=== PATIENT | male | born 1990 ===

== ENCOUNTER 2016-10-23 22:38 | Inpatient (IN) | payer SELFPAY ==
[2016-10-23 22:40] VITALS: BMI 26.9
--- NOTE | 2016-10-23 22:50 | ED PDOC ---
Arrival/HPI - General Chief Complaint: Psychiatric Evaluation Time Seen by Provider: 10/23/16 22:47 Historian: Patient - History of Present Illness Narrative History of Present Illness (Text): 10/23/16 22:50 Damien Parrish is a 25 year old male, whose past medical history includes anxiety and depression, who presents to the Emergency department transferred from [facility] for admission to psychiatric floor for management of depression. Patient was medically cleared at previous institution. Patient denies any fever, chills, chest pain, shortness of breath, nausea, vomiting, diarrhea, urinary symptoms, back pain, neck pain, headache, dizziness, or any other somatic complaints. Symptom Onset: Gradual Symptom Course: Unchanged Activities at Onset: Rest, Light Context: Other (transferred from [facility]) Past Medical History - Provider Review Nursing Documentation Reviewed: Yes - Infectious Disease Hx of Infectious Diseases: None - Psychiatric Hx Substance Use: Yes - Anesthesia Hx Anesthesia: No Family/Social History - Physician Review Nursing Documentation Reviewed: Yes Family/Social History: No Known Family HX Smoking Status: Light Smoker < 10 Cigarettes Daily Hx Alcohol Use: Yes Frequency of alcohol use: Daily Hx Substance Use: Yes Substance used: cocaine Allergies/Home Meds Allergies/Adverse Reactions: Allergies No Known Allergies Allergy (Verified 10/23/16 22:40) Home Medications: Home Meds Medication Instructions Recorded Confirmed No Known Home Med 10/23/16 10/23/16 Review of Systems - Physician Review All systems were reviewed & negative as marked: Yes - Review of Systems Constitutional: Normal. absent: Fevers Eyes: Normal ENT: Normal Respiratory: Normal. absent: SOB, Cough Cardiovascular: Normal. absent: Chest Pain Gastrointestinal: Normal. absent: Abdominal Pain, Diarrhea, Nausea, Vomiting Genitourinary Male: Normal. absent: Dysuria, Frequency, Hematuria, Urinary Output Changes Musculoskeletal: Normal. absent: Back Pain, Neck Pain Skin: Normal. absent: Rash Neurological: Normal. absent: Headache, Dizziness Endocrine: Normal Hemo/Lymphatic: Normal Psychiatric: Normal Physical Exam Vital Signs Reviewed: Yes Vital Signs Temp Pulse Resp BP Pulse Ox 10/23/16 23:03 98.1 F 52 L 16 125/79 93 L Temperature: Afebrile Blood Pressure: Normal Pulse: Regular Respiratory Rate: Normal Appearance: Positive for: Well-Appearing, Non-Toxic, Comfortable Pain Distress: None Mental Status: Positive for: Alert and Oriented X 3 - Systems Exam Head: Present: Atraumatic, Normocephalic Pupils: Present: PERRL Extroacular Muscles: Present: EOMI Conjunctiva: Present: Normal Mouth: Present: Moist Mucous Membranes Neck: Present: Normal Range of Motion Respiratory/Chest: Present: Clear to Auscultation, Good Air Exchange. No: Respiratory Distress, Accessory Muscle Use Cardiovascular: Present: Regular Rate and Rhythm, Normal S1, S2. No: Murmurs Abdomen: Present: Normal Bowel Sounds. No: Tenderness, Distention, Peritoneal Signs Back: Present: Normal Inspection Upper Extremity: Present: Normal Inspection. No: Cyanosis, Edema Lower Extremity: Present: Normal Inspection. No: Edema Neurological: Present: GCS=15, CN II-XII Intact, Speech Normal Skin: Present: Warm, Dry, Normal Color. No: Rashes Psychiatric: Present: Alert, Oriented x 3, Normal Insight, Normal Concentration Medical Decision Making ED Course and Treatment: 10/23/16 22:50 Impression: 25 year old male transferred from [facility] for depression. Differential Diagnosis included but are not limited to: depression Progress Notes: Pt transferred from [facility] for admission to psychiatric floor for management of depression. Patient was medically cleared at previous institution. Pt admitted to [facility] under Dr. Espinosa's service. - Scribe Statement The provider has reviewed the documentation as recorded by the Zechariah Burrell Provider Attestation: All medical record entries made by the Scribe were at my direction and personally dictated by me. I have reviewed the chart and agree that the record accurately reflects my personal performance of the history, physical exam, medical decision making, and the department course for this patient. I have also personally directed, reviewed, and agree with the discharge instructions and disposition. Disposition/Present on Arrival - Present on Arrival Any Indicators Present on Arrival: No History of DVT/PE: No History of Uncontrolled Diabetes: No Urinary Catheter: No History of Decub. Ulcer: No History Surgical Site Infection Following: None - Disposition Have Diagnosis and Disposition been Completed?: Yes Diagnosis: Depression, Suicidal ideation Disposition: HOSPITALIZED Disposition Time: 23:10 Patient Plan: Admission Condition: GOOD
[2016-10-24] MEDS ORDERED: Alum-Mag Hydrox-Simethicone Susp (30 mL) PO PRN (00:25)
[2016-10-24 02:23] VITALS: O2SAT 98
[2016-10-24 07:42] VITALS: RESP 20; TEMP 97.6
[2016-10-24 08:35] LABS: CHOLESTEROL 160 mg/dL (130-200)
[2016-10-24 09:33] LABS: HEMATOCRIT 45.2 % (42.0-52.0); MEAN CELL VOLUME 78.9 fL (80.0-105.0); MEAN CORPUSCULAR HEMOGLOBIN 27.4 pg (25.0-35.0); MEAN CORPUSCULAR HGB CONC 34.7 g/dl (31.0-37.0); MEAN PLATELET VOLUME 10.1 fl (7.0-11.0); RED CELL DISTRIBUTION WIDTH 13.3 % (11.5-14.5); WHITE BLOOD COUNT 5.5 10^3/ul (4.5-11.0)
[2016-10-24 09:41] LABS: ALB/GLOB RATIO 1.2 (1.1-1.8); ALKALINE PHOSPHATASE 72 U/L (38-133); ALT/SGPT 57 U/L (7-56); AST/SGOT 72 U/L (15-59); BLOOD UREA NITROGEN 6 mg/dL (7-21); CALCIUM 9.3 mg/dL (8.4-10.5); CARBON DIOXIDE 27 mmol/L (21-33); CHLORIDE 105 mmol/L (98-107); GFR AFRICAN-AMERICAN > 60; GLUCOSE,RANDOM 90 mg/dL (70-110); MAGNESIUM 1.9 mg/dL (1.7-2.2); PHOSPHOROUS 3.4 mg/dL (2.5-4.5); POTASSIUM 4.5 mmol/L (3.6-5.0); SODIUM 138 mmol/L (132-148); TOTAL PROTEIN 6.8 g/dL (5.8-8.3)
[2016-10-24] MEDS: Multivitamin With Minerals Tab PO SCH (13:07)
--- NOTE | 2016-10-24 13:32 | PCM.PSYCH ---
Initial Psychiatric Evaluation - Initial Psychiatric Evaluation Type of Admission: Voluntary Legal Status: Capacity (pt has capacity to sign consent for tx) Chief Complaint (in patient's own words): "I was not feeling so well, I need to have help" Patient's Reaction to Hospitalization: pt was admitted for evaluation of depressive symptoms. History of Present Illness and Precipitating Events: Shortly pt is a 25 year old homeless male initially presenting to [facility] ED for substance abuse and GI upset, when pt got to know that he is going to be d/c from the hospital pt expressed suicidal ideations. Pt signed consent for tx and was admitted over night. pt was seen at the tx team meeting, presented to be malodorous, poor personal hygiene, fair ADLs. pt is poor and unreliable historian, pt said that last time he was incarcerated was four years ago, but as per PES eval pt was released in June and since that time pt being homeless. pt said that he was feeling depressed, hopeless and helpless, passive wish to be , denied any plan or intent to kill himself. pt denied being anxious, denied BETO, denied PTSD, denied h/o abuse. pt said that he has periods of irritability, mind racing, difficulties to concentrate when he was off drugs, such episodes could last not more than couple of days. pt said that he does not hear voices or seeing things, denied paranoid ideation , but pt was keep looking at the back towards the door, seems to be suspicious. pt reported that he was trying to self medicate with alcohol, cocaine, heroin, pt reported initially came to the hospital for "vomiting and upset stomach". pt has some mild UE tremor, last dose of all drugs was three days ago, pt has h/o rehabs, most recent was two years ago MINI, pt staid sober for two months. no DT 's h/o. pt smokes about 6cigarettes a day, requested to have a nicotine patch. counseling provided. pt was denied h/o agitation/denied h/o aggressions, pt's brother is institutionalized, long h/o mental illness, pt does not know what dx he has. pt has h/o incarceration for burglary [id number], violation of probation as per PES, pt wanted to withhold this info (PES report). pt reported h/o suicidal attempt "four years ago, I wanted to kill myself, I cut my wrist" pt has old superficial scars on the left forearm. as per pt: h/o psych admission in [facility] "two years ago". pt has no support, pt is homeless, substance abuse, no job. goal for tx: "I want to get better, I was keep using drugs because of my depression". meds discussed, risk/benefits and alternatives were explained to the pt. Medical h/o: denied. 10/24/16 09:10 10/24/16 09:10 Lab Results 10/24/16 11:30: TSH 3rd Generation 1.05 10/24/16 09:10: Sodium 138, Potassium 4.5, Chloride 105, Carbon Dioxide 27, Anion Gap 11, BUN 6 L, Creatinine 0.9, Est GFR ( Amer) > 60, Est GFR (Non -Af Amer) > 60, Random Glucose 90, Calcium 9.3, Phosphorus 3.4, Magnesium 1.9, Total Bilirubin 1.0, AST 72 H, ALT 57 H, Alkaline Phosphatase 72, Total Protein 6.8, Albumin 3.7, Globulin 3.1, Albumin/Globulin Ratio 1.2 10/24/16 09:10: WBC 5.5, RBC 5.73, Hgb 15.7, Hct 45.2, MCV 78.9 L, MCH 27.4, MCHC 34.7, RDW 13.3, Plt Count 184, MPV 10.1 10/24/16 08:00: Triglycerides 36, Cholesterol 160, LDL Cholesterol Direct 69, HDL Cholesterol 67 H 10/24/16 08:00: Hemoglobin A1c 5.9 Vital Signs Temp Pulse Resp BP Pulse Ox 10/24/16 07:41 97.6 F 56 L 20 129/68 10/24/16 00:28 17 10/23/16 23:20 98.7 F 58 L 22 117/76 98 10/23/16 23:03 98.1 F 52 L 16 125/79 93 L Current Medications: Active Medications Generic Name Dose Route Start Last Admin Trade Name Freq PRN Reason Stop Dose Admin Acetaminophen 650 mg 10/24/16 00:13 10/24/16 00:32 Tylenol 325mg Tab PO 650 mg Q6 PRN Administration Pain, Mild (1-3) Al Hydrox/Mg Hydrox/Simethicone 30 ml 10/24/16 00:25 10/24/16 00:32 Maalox Plus 30 Ml PO 30 ml DAILY PRN Administration Indigestion / Heartburn Citalopram Hydrobromide 10 mg 10/24/16 08:00 Celexa PO DAILY FILIPE Folic Acid 1 mg 10/24/16 08:00 Folic Acid PO DAILY FILIPE Lorazepam 2 mg 10/24/16 06:00 10/24/16 06:10 Ativan PO 2 mg Q6 FILIPE Administration Thiamine HCl 50 mg 10/24/16 08:00 Vitamin B1 Tab PO DAILY FILIPE Zaleplon 10 mg 10/24/16 00:29 Sonata PO HS PRN Insomnia Past Psychiatric History - Past Psychiatric History Prior Professional Help: see HPI Prior Psychiatric Treatment: see hPi At [facility]: see HPI Duration: see HPI Nature of Treatment: see hPI Explanation of prior treatment: none History of Abuse: see HPI History of ETOH/Drug Use: see HPI History of Family Illness: see HPI Pertinent Medical Hx (Current Medical&Sleep Prob, Allergies): Allergies Allergy/AdvReac Type Severity Reaction Status Date / Time No Known Allergies Allergy Verified 10/24/16 00:11 No Known Home Med 10/23/16 Review of Systems - Review of Systems Systems not reviewed;Unavailable: Acuity of Condition - EENT Eyes: As Per HPI Ears: As Per HPI Nose/Mouth/Throat: As Per HPI - Cardiovascular Cardiovascular: As Per HPI - Respiratory Respiratory: As Per HPI - Gastrointestinal Gastrointestinal: As Per HPI - Genitourinary Genitourinary: As Per HPI - Reproductive: Male Reproductive:Male: As Per HPI - Musculoskeletal Musculoskeletal: As Par HPI - Integumentary Integumentary: As Per HPI - Neurological Neurological: As Per HPI - Psychiatric Psychiatric: As Per HPI - Endocrine Endocrine: As Per HPI - Hematologic/Lymphatic Hematologic: As Per HPI Mental Status Examination - Personal Presentation Personal Presentation: Looks stated age - Affect Affect: Flat - Motor Activity Motor Activity: Psychomotor Retardation - Reliability in Providing Information Reliability in Providing Information: Poor, due to alteration in thoughts, Poor , due to altered mood, Poor, due to cognitve impairment - Speech Speech: Organized, Other (poverty of speech) - Mood Mood: Depressed - Formal Thought Process Formal Thought Process: Other (poverty of thoughts) - Obsessions/Compulsions Obsessions: None Compulsions: None - Cognitive Functions Orientation: Person, Place, Situation Sensorium: Drowsy Attention/Concentration: Easily distracted Abstract Thinking: [place] Estimate of Intelligence: Below average Judgement: Intact, as evidence by: Insight regarding need for hospitalization - Risk Risk: Withdrawal, Self-mutilation, Diminished functioning - Strength & Assets Inventory Strength & Assets Inventory: Cooperative - Limitations Limitations: Other (polysubstance abuse and dependence) DSM 5 DX - DSM 5 DSM 5 Diagnosis: r/o MDD r/o substance induced mood disorder r/o bipolar spectrum d/o r/o antisocial personality d/o polysubsntace abuse and dependence nicotine abuse - Recommended/Plan of Treatment Treatment Recommendations and Plan of Treatment: milieu,structure, supportive therapy multivitamins, thiamine,folic acid Neurontin 100 mg 3 times a day for alcohol cravings Remeron 15 mgat the nighttime for depression and insomnia Risperdal 0.5 mg twice a day for mood stabilization When necessary medication Will consider naltrexone 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 - Smoking Cessation Smoking Cessation Initiated: Yes
[2016-10-25 06:47] VITALS: BP 138/78; PULSE 60
[2016-10-25] MEDS: Multivitamin With Minerals Tab PO SCH (09:16)
[2016-10-25] MEDS ORDERED: guaiFENesin 100 mg/5 ml Syrup UD PO PRN (12:56)
[2016-10-25] MEDS ORDERED: DiphenhydrAMINE 50 mg/ml Inj ONE (14:54)
[2016-10-25] MEDS ORDERED: DiphenhydrAMINE 50 mg/ml Inj IM ONE (14:58)
--- NOTE | 2016-10-25 15:27 | CP.PCM.CON ---
<Mathew Alston - Last Filed: 10/25/16 15:38> History of Present Illness - History of Present Illness History of Present Illness: Medicine Consult Note This is a 25 y/o male presenting from [facility] for inpatient psych admission. Patient presented with reports of depression with suicidal ideation. Patient states this is not the first time he has experienced feelings of depression and suicidal thoughts. He states he did not have a plan to commit suicide. He denies homicidal ideation. Patient also admits to tobacco and daily alcohol use. States he drinks about 6 beers daily. Currently patient is complaining of a nonproductive cough for the past few days. He denies chest pain , shortness of breath, n/v/d, GI complaints, urinary symptoms. On initial w/u at [facility] urine tox noted to be positive for both cannabis and cocaine. PMH: anxiety, depression Surgical HX - patient denies Fhx - none significant Allergies - NKDA Social hx - admits to daily alcohol use. States he drinks 6 beers daily. Admits to smoking 1ppd for about 10 years. Review of Systems - Constitutional Constitutional: absent: Chills, Fever - EENT Eyes: absent: Blurred Vision, Change in Vision, Loss of Vision Nose/Mouth/Throat: Sore Throat. absent: Nasal Congestion, Nasal Discharge - Cardiovascular Cardiovascular: absent: Chest Pain, Dyspnea, Syncope - Respiratory Respiratory: Cough. absent: Dyspnea, Hemoptysis, Dyspnea on Exertion - Gastrointestinal Gastrointestinal: absent: Abdominal Pain, Diarrhea, Nausea, Vomiting - Genitourinary Genitourinary: absent: Dysuria, Hematuria - Musculoskeletal Musculoskeletal: absent: Back Pain, Neck Pain - Integumentary Integumentary: absent: Pruritus, Rash - Neurological Neurological: absent: Dizziness, Focal Weakness, Headaches, Syncope - Psychiatric Psychiatric: Anxiety, Depression, Suicidal Ideation. absent: Hallucinations, Homicidal Ideation - Endocrine Endocrine: absent: Fatigue, Palpitations Past Patient History - Infectious Disease Hx of Infectious Diseases: None - Past Social History Smoking Status: Light Smoker < 10 Cigarettes Daily - CARDIAC Hx Cardiac Disorders: No Hx Angina: No Hx Atrial Fibrillation: No - PULMONARY Hx Respiratory Disorders: No - NEUROLOGICAL Hx Neurological Disorder: No - HEENT Hx HEENT Problems: No - RENAL Hx Chronic Kidney Disease: No Hx Kidney Stones: No - ENDOCRINE/METABOLIC Hx Endocrine Disorders: No - HEMATOLOGICAL/ONCOLOGICAL Hx Blood Disorders: No - INTEGUMENTARY Hx Dermatological Problems: No - MUSCULOSKELETAL/RHEUMATOLOGICAL Hx Musculoskeletal Disorders: No - GASTROINTESTINAL Hx Gastrointestinal Disorders: Yes Hx Vomiting: Yes - GENITOURINARY/GYNECOLOGICAL Hx Genitourinary Disorders: No - PSYCHIATRIC Hx Substance Use: Yes - SURGICAL HISTORY Hx Surgeries: No - ANESTHESIA Hx Anesthesia: No Meds Allergies/Adverse Reactions: Allergies Allergy/AdvReac Type Severity Reaction Status Date / Time No Known Allergies Allergy Verified 10/24/16 00:11 - Medications Medications: Current Medications Acetaminophen (Tylenol 325mg Tab) 650 mg PO Q6 PRN PRN Reason: Pain, Mild (1-3) Last Admin: 10/24/16 00:32 Dose: 650 mg Al Hydrox/Mg Hydrox/Simethicone (Maalox Plus 30 Ml) 30 ml PO DAILY PRN PRN Reason: Indigestion / Heartburn Last Admin: 10/24/16 00:32 Dose: 30 ml Albuterol/Ipratropium (Duoneb 3 Mg/0.5 Mg (3 Ml) Ud) 3 ml IH [id number] [facility] Folic Acid (Folic Acid) 1 mg PO DAILY [facility] Last Admin: 10/25/16 09:14 Dose: 1 mg Gabapentin (Neurontin) 100 mg PO TID FILIPE PRN Reason: Protocol Last Admin: 10/25/16 12:52 Dose: 100 mg Guaifenesin (Robitussin) 100 mg PO Q4H PRN PRN Reason: Cough Last Admin: 10/25/16 13:41 Dose: 100 mg Lorazepam (Ativan) 2 mg PO Q6 FILIPE Last Admin: 10/25/16 12:52 Dose: 2 mg Mirtazapine (Remeron) 15 mg PO HS [facility] Last Admin: 10/24/16 21:27 Dose: 15 mg Multivitamins/Minerals (Therapeutic-M Tab) 1 tab PO DAILY [facility] Last Admin: 10/25/16 09:16 Dose: 1 tab Nicotine (Nicoderm Cq) 1 patch TD DAILY [facility] Last Admin: 10/25/16 09:15 Dose: 1 patch Risperidone (Risperdal Tab) 0.5 mg PO AMHS FILIPE PRN Reason: Protocol Last Admin: 10/25/16 09:15 Dose: 0.5 mg Thiamine HCl (Vitamin B1 Tab) 100 mg PO DAILY [facility] Last Admin: 10/25/16 09:19 Dose: 100 mg Physical Exam - Constitutional Appears: Non-toxic, No Acute Distress - Head Exam Head Exam: ATRAUMATIC, NORMOCEPHALIC - Eye Exam Eye Exam: EOMI, PERRL - ENT Exam ENT Exam: Mucous Membranes Moist - Neck Exam Neck exam: Positive for: Full Rom, Normal Inspection. Negative for: Lymphadenopathy - Respiratory Exam Respiratory Exam: Clear to Auscultation Bilateral. absent: Rales, Rhonchi, Wheezes - Cardiovascular Exam Cardiovascular Exam: REGULAR RHYTHM, +S1, +S2 - GI/Abdominal Exam GI & Abdominal Exam: Normal Bowel Sounds, Soft. absent: Tenderness - Extremities Exam Extremities exam: Negative for: calf tenderness, pedal edema - Neurological Exam Neurological exam: Alert, Oriented x3 - Psychiatric Exam Psychiatric exam: Flat Affect, Suicidal Ideation - Skin Skin Exam: Normal Color, Warm Results - Vital Signs Recent Vital Signs: Last Vital Signs Temp 97.6 F 10/25/16 06:46 Pulse 60 10/25/16 06:46 Resp 20 10/25/16 06:46 BP 138/78 10/25/16 06:46 Pulse Ox 98 10/23/16 23:20 - Labs Result Diagrams: 10/24/16 09:10 10/24/16 09:10 Assessment & Plan - Assessment and Plan (Free Text) Assessment: 25 y/o male with hx of depression presenting for inpatient admission for depression and SI. Medicine is consulted in for medical management. Patient does not reveal a significant PMH. UDS is positive for cocaine and cannabis. Labs reviewed. Mildly elevated liver enzymes are noted. This is likely 2/2 alcohol abuse however we will check a hepatitis panel. Depression/SI - manage per psych team elevated liver enzymes likely 2/2 alcohol use - acute hepatitis panel - alcohol cessation advised. Tobacco use - advised on smoking cessation - continue cough suppressant as needed. <Sera Key B - Last Filed: 10/25/16 21:32> Results - Vital Signs Recent Vital Signs: Last Vital Signs Temp 97.6 F 10/25/16 06:46 Pulse 60 10/25/16 06:46 Resp 20 10/25/16 06:46 BP 138/78 10/25/16 06:46 Pulse Ox 98 10/23/16 23:20 - Labs Result Diagrams: 10/24/16 09:10 10/24/16 09:10 Labs: Laboratory Results - last 24 hr 10/25/16 13:30 Hepatitis A IgM Ab Negative Hep Bs Antigen Negative Hep B Core IgM Ab Negative Hepatitis C Antibody Negative Attending/Attestation - Attestation I have personally seen and examined this patient.: Yes I have fully participated in the care of the patient.: Yes I have reviewed all pertinent clinical information: Yes Notes (Text): I have seen and examined the patient at bedside. This is 25 year old male with history of marijuana use, cocaine use, alcohol abuse, anxiety, depression, tobacco use, homeless who got admitted for evaluation of depression adnd suicidal ideation. Reports cough however denies sputum production, fever, chills, chest pain or sob. Will start cough meds. Alcohol and tobacco cessation counselling provided. LFTs are elevated most likely due to alcohol abuse. Will check Hep panel. Counselling provided regarding alcohol, tobacco and substance abuse. Dr Sera Key
[2016-10-25] MEDS ORDERED: Albuterol-Ipratrop 3 mg / 0.5 (3 ml) UD IH SCH (15:30)
--- NOTE | 2016-10-26 10:06 | PCM.PYCHDC ---
Mental Status Examination - Mental Status Examination Orientation: Person, Place, Situation, Time Memory: Intact Mood: Neutral Affect: Constricted (And angry) Speech: Appropriate Attention: WNL Concentration: WNL Association: WNL Fund of Knowledge: WNL Formal Thought Process: No Impairment Description of patient's judgement and insight: Pt has improved insight into mental and medical illness, pt was compliant with medications and unit rules and regulations, pt was going to groups, was calm, cooperative, socially appropriate, no behavioral incidents, no agitation, no aggression. Psychotic Thoughts and Behaviors: Pt denied v/a/t hallucinations, denied paranoid ideations, pt does not appear to be psychotic, and thought process is goal directed. Suicidal Ideation: No Current Homicidal Ideation?: No Plan: pt adamantly denied thoughts of harming self or others denied intent or plan. Discharge Summary - Discharge Note Reason for Hospitalization: pt was admitted for evaluation of depressive symptoms, pt denied thoughts of harming self or others. Psychiatric History (includes Medical, Family, Personal Hx): see hPI Laboratory Data: Abnormal Lab Results 10/25/16 13:30 Hepatitis A IgM Ab Negative Hep Bs Antigen Negative Hep B Core IgM Ab Negative Hepatitis C Antibody Negative Consultations:: List each consultation separately and include: 1. Reason for request. 2. Findings. 3. Follow-up Consultations: pt was seen by medical team, consult appreciated, see notes for more detailed information Summary of Hospital Course include:: 1. Description of specific treatment plan utilized for patients during their course of treatmen. 2. Summarize the time- course for resolution of acute symptoms and/or regressed behaviors. 3. Describe issues identified and worked on during hospitalization. 4. Describe medication utilized. 5. Describe medical problems identified and treated. 6. Reassessment of suicide risk Summary of Hospital Course: Shortly pt is a 25 year old homeless male initially presenting to [facility] ED for substance abuse and GI upset, when pt got to know that he is going to be d/c from the hospital pt expressed suicidal ideations. Pt signed consent for tx and was admitted over night. pt was seen at the tx team meeting, presented to be malodorous, poor personal hygiene, fair ADLs. pt is poor and unreliable historian, pt said that last time he was incarcerated was four years ago, but as per PES amauri pt was released in June and since that time pt being homeless. pt said that he was feeling depressed, hopeless and helpless, passive wish to be , denied any plan or intent to kill himself. pt denied being anxious, denied BETO, denied PTSD, denied h/o abuse. pt said that he has periods of irritability, mind racing, difficulties to concentrate when he was off drugs, such episodes could last not more than couple of days. pt said that he does not hear voices or seeing things, denied paranoid ideation , but pt was keep looking at the back towards the door, seems to be suspicious. pt reported that he was trying to self medicate with alcohol, cocaine, heroin, pt reported initially came to the hospital for "vomiting and upset stomach". pt has some mild UE tremor, last dose of all drugs was three days ago, pt has h/o rehabs, most recent was two years ago [facility], pt staid sober for two months. no DT 's h/o. pt smokes about 6cigarettes a day, requested to have a nicotine patch. counseling provided. pt was denied h/o agitation/denied h/o aggressions, pt's brother is institutionalized, long h/o mental illness, pt does not know what dx he has. pt has h/o incarceration for burglary [id number], violation of probation as per PES, pt wanted to withhold this info (PES report). pt reported h/o suicidal attempt "four years ago, I wanted to kill myself, I cut my wrist" pt has old superficial scars on the left forearm. as per pt: h/o psych admission in [facility] "two years ago". pt has no support, pt is homeless, substance abuse, no job. goal for tx: "I want to get better, I was keep using drugs because of my depression". meds discussed, risk/benefits and alternatives were explained to the pt. Medical h/o: denied. RN contacted this underwriter yesterday, saying that pt is demanding to leave the hospital. Pt was not able to wait and joseph haynes was called. this underwriter and nurse manager drilling responded immediately, pt was found to be irritable, insisted to be discharged, patient said that he lied to this underwriter about his suicidal ideations, patient reported that his friends told team to say suicidal statements in order to be admitted to the psychiatric inpatient unit, patient reported that he never been suicidal, he wanted to be in the hospital for his opioid and alcohol withdrawal symptoms.patient said that detox unit did not have beds available that's why he fabricated suicidal and depressive symptoms. Patient was educated in future references to report correct symptoms in order to have not inappropriate admissions. Patient verbalized understanding. When patient was asked why he was demanding to be discharged patient said "I have flashbacks about my incarceration, I cannot stand locked unit". Patient reported that he feels fine at present moment, denied hearing voices, denied seeing things, denied thoughts of car harming himself or others. Patient did not need to be medicated, was able to calm down, no interventions further. As per staff patient had good appetite, good sleep, has strong antisocial traits , but patient was socially appropriate. At present moment patient has capacity to sign AGAINST MEDICAL ADVICE(his underwriter wanted pt to complete tx for withdrawals and possible bipolar traits, irritability, but pt refused to stay), patient was educated still stay away off drugs, patient also was educated to be followed up with AA meeting and a meetings, patient verbalized understanding. pt signed AMA, pt has capacity to do so, pt has ability to arrange aftercare plan. no prescriptions provided pt was advised to f/u with medical team, pt verbalized understanding. - Diagnosis (1) Substance induced mood disorder Status: Acute (2) Antisocial personality disorder Status: Acute (3) Polysubstance dependence including opioid type drug, episodic abuse Status: Acute - Final Diagnosis (DSM 5) Condition upon Discharge: GOOD Disposition: AGAINST MEDICAL ADVICE Follow-up Treatment Plan: At present moment patient has capacity to sign AGAINST MEDICAL ADVICE(his underwriter wanted pt to complete tx for withdrawals and possible bipolar traits, irritability, but pt refused to stay), patient was educated still stay away off drugs, patient also was educated to be followed up with AA meeting and a meetings, patient verbalized understanding. pt signed AMA, pt has capacity to do so, pt has ability to arrange aftercare plan. no prescriptions provided pt was advised to f/u with medical team, pt verbalized understanding. - Smoking Cessation Smoking Cessation Medication prescribed: Yes - Antipsychotic Medications Pt discharged on 2 or more routine antipsychotic medications: No
== END 2016-10-25 16:07 | disposition left against medical advice (07) | DRG 894 ==
LOC: ED 22:38 → ERH 22:53 → PSYC 10-24 00:10
PROVIDERS: ADMIT Psychiatry & Neurology Psychiatry; ATTEND Psychiatry & Neurology Psychiatry
DX: F19.24 Other psychoactive substance dependence with psychoactive substance-induced mood disorder (principal); F32.9 Major depressive disorder, single episode, unspecified; R45.851 Suicidal ideations; F60.2 Antisocial personality disorder; F10.10 Alcohol abuse, uncomplicated; Z59.0 Homelessness